=== PATIENT | male | born 1950 | race Caucasian/White ===

== ENCOUNTER 2021-04-07 15:02 | Emergency (ER) | payer SELFPAY ==
[~2021-04-07] VITALS: Ht 175.3 cm; Wt 86.4 kg
[2021-04-07 15:24] VITALS: BP 136/70
== END 2021-04-07 18:12 | disposition left against medical advice (07) ==
LOC: ER 15:03
DX: R39.9 Unspecified symptoms and signs involving the genitourinary system (principal); Z53.21 Procedure and treatment not carried out due to patient leaving prior to being seen by health care provider

== ENCOUNTER 2021-04-08 05:23 | Emergency (ER) | payer MEDICARE, BC ==
[~2021-04-08] VITALS: Ht 175.3 cm; Wt 86.4 kg
[2021-04-08 05:53] VITALS: BP 135/62
== END 2021-04-08 06:26 | disposition home or self-care (01) ==
LOC: ER 05:24
DX: R33.9 Retention of urine, unspecified (principal); R35.0 Frequency of micturition; K35.32 Acute appendicitis with perforation, localized peritonitis, and gangrene, without abscess; I10 Essential (primary) hypertension; Z90.89 Acquired absence of other organs
CPT/HCPCS: 99281